=== PATIENT | female | born 1975 | race Caucasian/White ===

== ENCOUNTER 2022-02-17 15:01 | Outpatient (CLI) | payer OTHER, SELFPAY ==
--- NOTE | 2022-02-17 15:30 | CRLHL7_ITS ---
For Patients: As a result of the Century Cures Act, medical imaging exams and procedure reports are released immediately into your electronic medical record. You may view this report before your referring provider. If you have questions, please contact your health care provider. INDICATION: Headaches. TECHNIQUE: Multiplanar multisequence noncontrast MR images acquired through the brain. COMPARISON: None. FINDINGS: The ventricles and sulci are within normal limits for patient age. No mass effect or midline shift. No parenchymal signal abnormalities. No intracranial hemorrhage or pathologic extra-axial fluid collection. No diffusion restriction to suggest acute infarction. The major arterial flow voids of the skullbase are preserved. The globes are symmetric. Severe opacification of the left frontal sinus. Minimal left maxillary sinus mucosal thickening. The mastoid air cells are clear. IMPRESSION: 1. No intracranial abnormality on this noncontrast exam. 2. Severe opacification of the left frontal sinus. Dictated by Agustin Mckeon MD @ 02/17/2022 4:25:22 PM (Electronically Signed)
== END 2022-02-17 15:02 | disposition home or self-care (01) ==
LOC: MRI 15:02
PROVIDERS: PCP Physician Assistant Medical; Visit Provider Physician Assistant Medical
DX: R59.1 Generalized enlarged lymph nodes (principal)
CPT/HCPCS: 70551

== ENCOUNTER 2022-05-01 13:06 | Outpatient (CLI) | payer OTHER, SELFPAY ==
[2022-05-01 22:49] LABS: Cholesterol* 192 mg/dL (90-199)
[2022-05-01 22:50] LABS: Glucose* 54 mg/dL (60-115); HDL Cholesterol* 75 mg/dL (>=50); LDL Cholesterol Calculated 105 mg/dL (<100); Triglycerides* 62 mg/dL (40-149)
== END 2022-05-01 13:07 | disposition home or self-care (01) ==
PROVIDERS: PCP Physician Assistant Medical; Visit Provider Physician Assistant Medical
DX: Z00.00 Encounter for general adult medical examination without abnormal findings (principal); Z13.6 Encounter for screening for cardiovascular disorders; Z13.1 Encounter for screening for diabetes mellitus
CPT/HCPCS: 80061; 82947

== ENCOUNTER 2022-05-30 10:50 | Emergency (ER) | payer OTHER, SELFPAY ==
[2022-05-30 11:23] VITALS: BP 100/67; PULSE 87; RESP 16; TEMP 37; O2SAT 99
[2022-05-30 15:48] VITALS: BP 110/76; PULSE 73; RESP 17; TEMP 36.3; O2SAT 99
--- NOTE | 2022-05-30 15:49 | ED.NURSE ---
Patient rechecked in waiting room. No condition change, vital signs stable.
--- NOTE | 2022-05-30 17:31 | ED.ABDPAIN ---
HPI - Abdominal Pain General Date Seen: 05/30/22 Chief Complaint: Abdominal Pain Stated Complaint: Lower r abdominal pain Time Seen by Provider: 05/30/22 10:57 Source: patient and family Mode of arrival: ambulatory Limitations: no limitations History of Present Illness HPI narrative: patient is a 46-year-old female who presents here with right lower quadrant pain since yesterday, she describes it as a right upper right lower quadrant, with maybe a little radiation to her back and worse when she takes a deep breath in, any sort of movement worsens as, she is slightly nauseous, but has not vomited, she has no history of fevers chills or sweats, her urine has not been dark, she has no history of constipation. She denies previous abdominal surgeries. But has had a history of a previous uterine ablation. She took some ibuprofen 400 mg in the waiting room at home but really did notice a difference with this. She does have a history of chronic fibromyalgia, and use gabapentin periodically but has not done so for the last 6 months, she denies a history of alcohol drugs or smoking. History of black stools MD elicited complaint: abdominal pain Pertinent past history: none Related Data Home Medications Medication Instructions Recorded Confirmed Multiple vitamin PO 05/01/22 Previous Rx's Medication Instructions Recorded gabapentin 300 mg capsule 600 mg PO QHS #180 caps 05/01/22 Allergies Allergy/AdvReac Type Severity Reaction Status Date / Time No Known Drug Allergies Allergy Verified 05/01/22 12:53 [facility] Surgical History (Updated 05/01/22 @ 13:06 by Nancy Mackay PA-C) History of endometrial ablation Family History (Updated 02/08/22 @ 14:13 by Nancy Mackay PA-C) Paternal Grandmother Dementia Paternal Grandfather Dementia Sister Brain disorder, Onset Age: 27 Social History (Updated 05/01/22 @ 13:09 by Nancy Mackay PA-C) Narrative: . 4 sons; 1 step daughter Smoking Status: Never smoker Do you use any of these nicotine containing products: None Second hand tobacco smoke exposure: No How often do you have a drink containing alcohol: never How often do you have six or more drinks on one occasion: Never AUDIT-C Alcohol total score: 0 Non-prescribed substance use: denies use Little interest or pleasure in doing things: not at all Feeling down, depressed, or hopeless: not at all service: No Exam Narrative: Exam Narrative: Patient is peaking normally, problem with slurring words, oriented x3. Head eyes ears nose and throat exam show equal pupils, no scleral icterus, extraocular muscles are normal, no facial droop, speech is normal, trachea normal and midline. Thyroid normal midline palpable not enlarged. Chest shows symmetrical rise bilaterally, normal auscultation with no wheezes, no increased work of breathing, no overt bruising or lesions seen, no tenderness is noted on auscultation. Heart sounds normal with no S3-S4 no murmurs clicks or gallops. Abdomen shows no obvious masses or hepatosplenomegaly, no organomegaly, bowel sounds are normal in all quadrants. tenderness is noted in the right upper and lower quadrants, I would describe as mild to moderate. Upper and lower extremities show normal power, normal range of motion, pulses are normal, sensations normal, fine motor movements are normal, pelvis is stable to rocking. Cervical spine shows normal range of motion, and palpably not tender. Thoracic spine shows normal range of motion, and palpably not tender, lumbar spine shows no tenderness to palpation percussion and is otherwise normal range of motion. Skin shows no rashes, petechiae or eccymosis. Const: Vital Signs, click to edit/add: Vital Signs - 24 hr 05/30/22 11:23 05/30/22 15:48 05/30/22 20:07 Temperature 98.6 F 97.4 F L Pulse Rate [Pulse Oximeter] 87 73 70 Respiratory Rate 16 17 16 Blood Pressure Blood Pressure [Ri ght Upper Arm] 100/67 110/76 95/63 Pulse Oximetry 99 99 99 Oxygen Delivery Me thod Room Air Room Air Room Air 05/30/22 18:00 05/30/22 20:35 Temperature Pulse Rate [Pulse Oximeter] Respiratory Rate Blood Pressure 113/74 Blood Pressure [Ri ght Upper Arm] 101/70 Pulse Oximetry Oxygen Delivery Me thod Course Course Hospital Course: I spoke to patient and her significant other, at this point her labs all look reassuring, we will do a CT scan to further rule out acute abnormality, if this is negative then I think we can lower go home, she is improved with the Toradol, Zofran and the fluids. Reevaluation(s) Reevaluation #1: I reviewed with the patient that her CT scan did not show any acute abnormality, but did show evidence of a right-sided ovarian cyst. She tells me she has had this before in the past, and I do recommend she follows up with her primary care physician and considers further imaging done in 4-6 weeks. I would also recommend that she use ibuprofen Tylenol I did offer her stronger pain medicine that she may use such as narcotics but she declined this intervention. Worsening pain then I would recommend that she come back and be seen and she was comfortable with this plan. Time: 20:57 Vital Signs Vital signs: Initial Vital Signs Temperature 98.6 F 05/30/22 11:23 Temperature Source Temporal Artery Scan 05/30/22 11:23 Pulse Rate 87 05/30/22 11:23 Pulse Rhythm 05/30/22 11:23 Respiratory Rate 16 05/30/22 11:23 Blood Pressure 100/67 05/30/22 11:23 Blood Pressure Mean 78 05/30/22 11:23 Blood Pressure Position Sitting 05/30/22 11:23 Pulse Oximetry 99 05/30/22 11:23 Oxygen Delivery Method 05/30/22 11:23 Vital Signs Temperature 98.6 F 05/30/22 11:23 Pulse Rate 87 05/30/22 11:23 Respiratory Rate 16 05/30/22 11:23 Blood Pressure 100/67 05/30/22 11:23 Pulse Oximetry 99 05/30/22 11:23 Oxygen Delivery Method 05/30/22 11:23 Temperature 97.4 F L 05/30/22 15:48 Pulse Rate 70 05/30/22 20:07 Respiratory Rate 16 05/30/22 20:07 Blood Pressure 113/74 05/30/22 20:35 Pulse Oximetry 99 05/30/22 20:07 Oxygen Delivery Method 05/30/22 20:07 MDM - Abdominal Pain MDM Narrative Medical decision making narrative: During the evaluation of this patient I considered multiple differential diagnosis including life-threatening differentials which are appendicitis, aortic aneurysm, mesenteric ischemia, bowel perforation, ectopic , volvulus and bowel obstruction, other differential diagnosis include but are not limited to inflammatory bowel disease, cholecystitis, pancreatitis, hepatitis, gastritis, GERD, diverticulitis, peptic ulcer disease, pyelonephritis/UTI, renal colic/stone, pelvic inflammatory disease, cervicitis, endometritis, intrauterine , dysfunctional uterine bleeding, ovarian cyst/torsion, spontaneous as well as other etiologies Medical Records Attestation: I reviewed the patient's medical records. Lab Data Attestation: I reviewed the patient's lab results. Labs: Lab Results 05/30/22 05/30/22 05/30/22 Range/Units 18:00 18:00 18:00 WBC 7.00 (4.50-11.00) K/uL RBC 4.51 (4.00-5.20) m/uL Hgb 13.3 (12.0-16.0) gm/dL Hct 40.2 (33.0-51.0) % MCV 89 (80-100) fL MCH 30 (26-34) pg MCHC 33 (32-36) gm/dL RDW Coeff of José Miguel 12.8 (11.5-15.5) % Plt Count 258 (140-440) K/uL Neut % (Auto) 66.9 (42.0-72.0) % Lymph % (Auto) 25.3 (20-44) % [place] % (Auto) 7.1 (0.0-11.0) % Eos % (Auto) 0.3 (0.0-7.0) % Baso % (Auto) 0.3 (0.0-3.0) % Neut # (Auto) 4.68 (1.7-7.0) K/uL Lymph # (Auto) 1.77 (0.90-2.90) K/uL [place] # (Auto) 0.50 (0.00-0.90) K/UL Eos # (Auto) 0.02 (0.00-0.50) K/uL Baso # (Auto) 0.02 (0.00-0.30) K/uL Sodium 139 (135-149) mmol/L Potassium 3.8 (3.6-5.1) mmol/L Chloride 105 (96-114) mmol/L Carbon Dioxide 25 (20-32) mmol/L BUN 7 (5-24) mg/dL Creatinine 0.6 (0.5-1.5) mg/dL Estimated GFR 113 ml/min Glucose 93 (60-115) mg/dL Calcium 9.5 (8.4-10.6) mg/dL Total Bilirubin (0.1-1.5) mg/dL Direct Bilirubin (0.0-0.5) mg/dL AST (12-35) U/L ALT (4-35) U/L Alkaline Phosphatase (40-150) U/L C-Reactive Protein < 0.5 L (0.5-1.0) mg/dL Total Protein (6.0-8.3) g/dL Albumin (3.3-5.0) g/dL Lipase 92 (23-300) U/L Urine Color Urine Appearance Urine pH Ur Specific [place] Urine Protein Urine Glucose (UA) Urine Ketones Urine Blood Urine Nitrite Urine Bilirubin Urine Urobilinogen Ur Leukocyte Esterase Urine RBC Urine WBC Urine WBC Clumps Ur Squamous Epith Cells Gato Biurate Crystals Calcium Carbonate Cryst Calcium Phosphate Cryst Calcium Oxalate Crystal Cystine Crystals Uric Acid Crystals Triple Phos Crystals Sulfur Crystals Cholesterol Crystals Tyrosine Crystals Hippuric Acid Crystals Amorphous Sediment Other Sediment Urine Bacteria Fatty Casts Hyaline Casts Fine Granular Casts Coarse Granular Casts Waxy Casts RBC Casts WBC Casts Other Casts Urine Starch Urine Mucus Urine Trichomonas Urine Yeast Urine HCG, Qual (Negative) Urine Opiates Screen (Negative) Ur Oxycodone Screen (Negative) Urine Methadone Screen (Negative) Ur Propoxyphene Screen (Negative) Ur Barbiturates Screen (Negative) U Tricyclic Antidepress (Negative) Ur Phencyclidine Scrn (Negative) Ur Amphetamines Screen (Negative) U Methamphetamines Scrn (Negative) U Benzodiazepines Scrn (Negative) Urine Cocaine Screen (Negative) U Marijuana (THC) Screen (Negative) Ur Drug Screen Comment SARS-CoV-2 (PCR) Negative SARS-CoV-2 (Negative) Influenza Type A (PCR) Negative PCR FLU A (Negative) Influenza Type B (PCR) Negative PCR FLU B (Negative) RSV (PCR) Negative PCR RSV (Negative) 05/30/22 05/30/22 05/30/22 Range/Units 18:00 18:19 18:19 WBC (4.50-11.00) K/uL RBC (4.00-5.20) m/uL Hgb (12.0-16.0) gm/dL Hct (33.0-51.0) % MCV (80-100) fL MCH (26-34) pg MCHC (32-36) gm/dL RDW Coeff of José Miguel (11.5-15.5) % Plt Count (140-440) K/uL Neut % (Auto) (42.0-72.0) % Lymph % (Auto) (20-44) % [place] % (Auto) (0.0-11.0) % Eos % (Auto) (0.0-7.0) % Baso % (Auto) (0.0-3.0) % Neut # (Auto) (1.7-7.0) K/uL Lymph # (Auto) (0.90-2.90) K/uL [place] # (Auto) (0.00-0.90) K/UL Eos # (Auto) (0.00-0.50) K/uL Baso # (Auto) (0.00-0.30) K/uL Sodium (135-149) mmol/L Potassium (3.6-5.1) mmol/L Chloride (96-114) mmol/L Carbon Dioxide (20-32) mmol/L BUN (5-24) mg/dL Creatinine (0.5-1.5) mg/dL Estimated GFR ml/min Glucose (60-115) mg/dL Calcium (8.4-10.6) mg/dL Total Bilirubin 1.0 (0.1-1.5) mg/dL Direct Bilirubin 0.3 (0.0-0.5) mg/dL AST 24 (12-35) U/L ALT 18 (4-35) U/L Alkaline Phosphatase 51 (40-150) U/L C-Reactive Protein (0.5-1.0) mg/dL Total Protein 8.2 (6.0-8.3) g/dL Albumin 4.7 (3.3-5.0) g/dL Lipase (23-300) U/L Urine Color Cancelled Yellow Urine Appearance Cancelled Clear Urine pH Cancelled 7.5 Ur Specific [place] Cancelled 1.015 Urine Protein Cancelled Negative Urine Glucose (UA) Cancelled Negative Urine Ketones Cancelled 2+ A Urine Blood Cancelled Negative Urine Nitrite Cancelled Negative Urine Bilirubin Cancelled Negative Urine Urobilinogen Cancelled 1.0 Ur Leukocyte Esterase Cancelled Negative Urine RBC Cancelled 0-2 Urine WBC Cancelled 0-2 Urine WBC Clumps Cancelled Ur Squamous Epith Cells Cancelled None Gato Biurate Crystals Cancelled Calcium Carbonate Cryst Cancelled Calcium Phosphate Cryst Cancelled Calcium Oxalate Crystal Cancelled Cystine Crystals Cancelled Uric Acid Crystals Cancelled Triple Phos Crystals Cancelled Sulfur Crystals Cancelled Cholesterol Crystals Cancelled Tyrosine Crystals Cancelled Hippuric Acid Crystals Cancelled Amorphous Sediment Cancelled Other Sediment Cancelled Urine Bacteria Cancelled None Fatty Casts Cancelled Hyaline Casts Cancelled Fine Granular Casts Cancelled Coarse Granular Casts Cancelled Waxy Casts Cancelled RBC Casts Cancelled WBC Casts Cancelled Other Casts Cancelled Urine Starch Cancelled Urine Mucus Cancelled Urine Trichomonas Cancelled Urine Yeast Cancelled Urine HCG, Qual Negative (Negative) Urine Opiates Screen (Negative) Ur Oxycodone Screen (Negative) Urine Methadone Screen (Negative) Ur Propoxyphene Screen (Negative) Ur Barbiturates Screen (Negative) U Tricyclic Antidepress (Negative) Ur Phencyclidine Scrn (Negative) Ur Amphetamines Screen (Negative) U Methamphetamines Scrn (Negative) U Benzodiazepines Scrn (Negative) Urine Cocaine Screen (Negative) U Marijuana (THC) Screen (Negative) Ur Drug Screen Comment SARS-CoV-2 (PCR) (Negative) Influenza Type A (PCR) (Negative) Influenza Type B (PCR) (Negative) RSV (PCR) (Negative) 05/30/22 Range/Units 18:19 WBC (4.50-11.00) K/uL RBC (4.00-5.20) m/uL Hgb (12.0-16.0) gm/dL Hct (33.0-51.0) % MCV (80-100) fL MCH (26-34) pg MCHC (32-36) gm/dL RDW Coeff of José Miguel (11.5-15.5) % Plt Count (140-440) K/uL Neut % (Auto) (42.0-72.0) % Lymph % (Auto) (20-44) % [place] % (Auto) (0.0-11.0) % Eos % (Auto) (0.0-7.0) % Baso % (Auto) (0.0-3.0) % Neut # (Auto) (1.7-7.0) K/uL Lymph # (Auto) (0.90-2.90) K/uL [place] # (Auto) (0.00-0.90) K/UL Eos # (Auto) (0.00-0.50) K/uL Baso # (Auto) (0.00-0.30) K/uL Sodium (135-149) mmol/L Potassium (3.6-5.1) mmol/L Chloride (96-114) mmol/L Carbon Dioxide (20-32) mmol/L BUN (5-24) mg/dL Creatinine (0.5-1.5) mg/dL Estimated GFR ml/min Glucose (60-115) mg/dL Calcium (8.4-10.6) mg/dL Total Bilirubin (0.1-1.5) mg/dL Direct Bilirubin (0.0-0.5) mg/dL AST (12-35) U/L ALT (4-35) U/L Alkaline Phosphatase (40-150) U/L C-Reactive Protein (0.5-1.0) mg/dL Total Protein (6.0-8.3) g/dL Albumin (3.3-5.0) g/dL Lipase (23-300) U/L Urine Color Urine Appearance Urine pH Ur Specific [place] Urine Protein Urine Glucose (UA) Urine Ketones Urine Blood Urine Nitrite Urine Bilirubin Urine Urobilinogen Ur Leukocyte Esterase Urine RBC Urine WBC Urine WBC Clumps Ur Squamous Epith Cells [place] Biurate Crystals Calcium Carbonate Cryst Calcium Phosphate Cryst Calcium Oxalate Crystal Cystine Crystals Uric Acid Crystals Triple Phos Crystals Sulfur Crystals Cholesterol Crystals Tyrosine Crystals Hippuric Acid Crystals Amorphous Sediment Other Sediment Urine Bacteria Fatty Casts Hyaline Casts Fine Granular Casts Coarse Granular Casts Waxy Casts RBC Casts WBC Casts Other Casts Urine Starch Urine Mucus Urine Trichomonas Urine Yeast Urine HCG, Qual (Negative) Urine Opiates Screen Negative (Negative) Ur Oxycodone Screen Negative (Negative) Urine Methadone Screen Negative (Negative) Ur Propoxyphene Screen Negative (Negative) Ur Barbiturates Screen Negative (Negative) U Tricyclic Antidepress Negative (Negative) Ur Phencyclidine Scrn Negative (Negative) Ur Amphetamines Screen Negative (Negative) U Methamphetamines Scrn Negative (Negative) U Benzodiazepines Scrn Negative (Negative) Urine Cocaine Screen Negative (Negative) U Marijuana (THC) Screen Negative (Negative) Ur Drug Screen Comment See Note SARS-CoV-2 (PCR) (Negative) Influenza Type A (PCR) (Negative) Influenza Type B (PCR) (Negative) RSV (PCR) (Negative) Imaging Data CT scan - abdomen: Attestation: I have reviewed the pertinent imaging results. My impression: no acute findings Radiologist's impression: Patient: ELINOR GILES Facility:?[facility] Patient ID:?[id number] Site Patient ID:?[id number]. Site :?[id number] Study:?CT Abdomen/Pelvis W/IV ONLY-05/30/2022 7:57:20 PM Ordering Physician:Haylee Wills Final Report: INDICATION: Right-sided abdominal pain TECHNIQUE: Axial images were obtained from the diaphragm to the pubic symphysis. Reformats were obtained in the coronal and sagittal plane. IV Contrast: 52 cc Isovue 370 Oral Contrast: None COMPARISON: None. FINDINGS: Lower chest: No acute consolidation. Right breast implant. Liver: Unremarkable. Normal in size and attenuation. No masses. Gallbladder and bile ducts: Unremarkable. No stones or inflammation. No biliary dilatation. Spleen: Unremarkable. Normal in size without mass. Pancreas: Unremarkable. No mass or inflammation. Adrenal glands: Unremarkable. No nodules. Kidneys: Unremarkable. No masses, stones, or hydronephrosis. Vasculature: Unremarkable. GI tract: No dilated loops of large or small intestine. Unremarkable appendix. Pelvis: Tubal ligation clips within the anterior pelvis although these are not at the level of the fallopian tubes. Right ovarian cyst measuring 2.0 centimeters. Trace free fluid in the deep pelvis. Bones: Unremarkable for age. IMPRESSION: 1. No dilated loops of large or small intestine. Unremarkable appendix. 2. Right ovarian cyst measuring 2.0 centimeters with trace free fluid. Please note that all CT scans at this facility use dose modulation, iterative reconstruction, and/or weight-based dosing when appropriate to reduce radiation dose to as low as reasonably achievable. Dictated by Arsen Liriano MD @ 05/30/2022 8:09:31 PM (Electronic Signature) Discharge Plan Discharge Clinical Impression: Ovarian cyst, Abdominal pain Patient Disposition: Home w/ Parent or Adult Condition: Improved Instructions: Ovarian Cyst (ED), Abdominal Pain (ED) Additional Instructions: Home, rest, use of ibuprofen and Tylenol for your discomfort, if it comes back bad like it was before please return, I would recommend follow-up with her primary care physician within the next week, to discuss the ovarian cyst as you will need to follow-up ultrasound in 4-6 weeks for this. Prescriptions: No Action Multiple vitamin PO gabapentin 300 mg capsule 600 mg PO QHS Qty: 180 3RF Rx Instructions: Take 2 capsules at night for fibromyalgia pain Follow Up/Referrals: Nancy Mackay PA-C [Primary Care Provider] - Stand Alone Forms: [employer] Info Instructions
[2022-05-30] MEDS: 0.9 % SODIUM CHLORIDE 1000 ml 1,000 ML IV (17:58)
[2022-05-30] MEDS: ONDANSETRON 2 MG/ML inj 4 MG IVP (17:58)
[2022-05-30] MEDS: KETOROLAC 30 MG/ML inj IVP (17:58)
[2022-05-30 18:00] VITALS: BP 101/70
[2022-05-30 18:17] LABS: Basophils Absolute Auto 0.02 K/uL (0.00-0.30); Basophils Percent Auto 0.3 % (0.0-3.0); Eosinophils Absolute Auto 0.02 K/uL (0.00-0.50); Eosinophils Percent Auto 0.3 % (0.0-7.0); Hematocrit 40.2 % (33.0-51.0); Hemoglobin* 13.3 gm/dL (12.0-16.0); Immature Granulocytes Abs Auto 0.01 K/uL (0.00-0.30); Immature Granulocytes Pct Auto 0.1 %; Lymphocytes Absolute Auto 1.77 K/uL (0.90-2.90); Lymphocytes Percent Auto 25.3 % (20-44); Mean Corpuscular HGB Conc 33 gm/dL (32-36); Mean Corpuscular Hemoglobin 30 pg (26-34); Mean Corpuscular Volume 89 fL (80-100); Monocytes Percent Auto 7.1 % (0.0-11.0); Neutrophils Absolute Auto 4.68 K/uL (1.7-7.0); Neutrophils Percent Auto 66.9 % (42.0-72.0); Platelet Count* 258 K/uL (140-440); RDW Coefficient of Variation % 12.8 % (11.5-15.5); Red Blood Count 4.51 m/uL (4.00-5.20)
[2022-05-30 18:19] LABS: Slide Review Reflex No
[2022-05-30 18:26] LABS: Appearance Urine Clear (Clear); Bilirubin Urine Negative (Negative); Blood Urine Negative (Negative); Color Urine Yellow (Yellow); Glucose Urine Negative (Negative); Ketones Urine 2+ (Negative); Leukocyte Esterase Urine Negative (Negative); Nitrite Urine Negative (Negative); Protein Urine Negative (Negative); Specific Gravity Urine 1.015 (1.000-1.030); pH Urine 7.5 (5.0-8.5)
[2022-05-30 18:26] LABS: Chloride* 105 mmol/L (96-114)
[2022-05-30 18:27] LABS: Potassium* 3.8 mmol/L (3.6-5.1); Sodium* 139 mmol/L (135-149)
[2022-05-30 18:29] LABS: Creatinine* 0.6 mg/dL (0.5-1.5); Estimated Glomerular Filt Rate 113 ml/min; Lipase* 92 U/L (23-300)
[2022-05-30 18:30] LABS: Blood Urea Nitrogen* 7 mg/dL (5-24); Calcium* 9.5 mg/dL (8.4-10.6); Carbon Dioxide* 25 mmol/L (20-32); Glucose* 93 mg/dL (60-115)
[2022-05-30 18:31] LABS: Ur HCG Qualitative* Negative (Negative)
[2022-05-30 18:36] LABS: Amphetamine Screen Urine Negative (Negative); Barbiturate Screen Urine Negative (Negative); Benzodiazepines Screen Urine Negative (Negative); Cannabinoid Screen Urine Negative (Negative); Cocaine Screen Urine Negative (Negative); Methadone Screen Urine Negative (Negative); Methamphetamines Screen Urine Negative (Negative); Opiate Screen Urine Negative (Negative); Oxycodone Screen Urine Negative (Negative); Phencyclidine Screen Urine Negative (Negative); Tricyclic Antidepressant Urine Negative (Negative)
[2022-05-30 18:37] LABS: C Reactive Protein* < 0.5 mg/dL (0.5-1.0)
[2022-05-30 18:38] LABS: RBC Urine 0-2 (0-2); WBC Urine 0-2 (0-5)
[2022-05-30 18:50] LABS: PCR FLU A Negative PCR FLU A (Negative); PCR FLU B Negative PCR FLU B (Negative); PCR RSV Negative PCR RSV (Negative)
[2022-05-30 18:51] LABS: Albumin* 4.7 g/dL (3.3-5.0)
[2022-05-30 18:53] LABS: Bilirubin Direct* 0.3 mg/dL (0.0-0.5); Total Protein* 8.2 g/dL (6.0-8.3)
[2022-05-30 18:54] LABS: Alanine Aminotransferase* 18 U/L (4-35); Alkaline Phosphatase* 51 U/L (40-150); Aspartate Amino Transferase* 24 U/L (12-35)
[2022-05-30 19:19] LABS: SARS PCR* Negative SARS-CoV-2 (Negative)
--- NOTE | 2022-05-30 19:24 | CRLHL7_ITS ---
For Patients: As a result of the Century Cures Act, medical imaging exams and procedure reports are released immediately into your electronic medical record. You may view this report before your referring provider. If you have questions, please contact your health care provider. INDICATION: Right-sided abdominal pain TECHNIQUE: Axial images were obtained from the diaphragm to the pubic symphysis. Reformats were obtained in the coronal and sagittal plane. IV Contrast: 52 cc Isovue 370 Oral Contrast: None COMPARISON: None. FINDINGS: Lower chest: No acute consolidation. Right breast implant. Liver: Unremarkable. Normal in size and attenuation. No masses. Gallbladder and bile ducts: Unremarkable. No stones or inflammation. No biliary dilatation. Spleen: Unremarkable. Normal in size without mass. Pancreas: Unremarkable. No mass or inflammation. Adrenal glands: Unremarkable. No nodules. Kidneys: Unremarkable. No masses, stones, or hydronephrosis. Vasculature: Unremarkable. GI tract: No dilated loops of large or small intestine. Unremarkable appendix. Pelvis: Tubal ligation clips within the anterior pelvis although these are not at the level of the fallopian tubes. Right ovarian cyst measuring 2.0 centimeters. Trace free fluid in the deep pelvis. Bones: Unremarkable for age. IMPRESSION: 1. No dilated loops of large or small intestine. Unremarkable appendix. 2. Right ovarian cyst measuring 2.0 centimeters with trace free fluid. Please note that all CT scans at this facility use dose modulation, iterative reconstruction, and/or weight-based dosing when appropriate to reduce radiation dose to as low as reasonably achievable. Dictated by Arsen Liriano MD @ 05/30/2022 8:09:31 PM (Electronically Signed)
[2022-05-30 20:07] VITALS: BP 95/63; PULSE 70; RESP 16; O2SAT 99
[2022-05-30 20:35] VITALS: BP 113/74
== END 2022-05-30 20:37 | disposition home or self-care (01) ==
PROVIDERS: Emergency Medicine; Emergency Provider Family Medicine; PCP Physician Assistant Medical
DX: N83.201 Unspecified ovarian cyst, right side (principal)
CPT/HCPCS: 36415; 74177; 80048; 80076; 80306; 81001; 81025; 83690; 85025; 86140; 87502; 87634; 87635; 96374; 96375; 99284; J1885; J2405; J7030; Q9967

== ENCOUNTER 2022-08-22 15:15 | Outpatient (CLI) | payer OTHER, SELFPAY ==
--- NOTE | 2022-08-22 15:20 | CRLHL7_ITS ---
For Patients: As a result of the Cures Act, medical imaging exams and procedure reports are released immediately into your electronic medical record. You may view this report before your referring provider. If you have questions, please contact your health care provider. BILATERAL SCREENING MAMMOGRAM WITH COMPUTER-AIDED DETECTION AND TOMOSYNTHESIS TECHNIQUE: CC, MLO and Implant displaced views were obtained. These mammographic images have been obtained using full-field digital technique. These mammographic images were interpreted with the benefit of computer-aided detection. Breast Tomosynthesis was used in this interpretation. COMPARISON FILM: 03/01/19. FINDINGS: The breasts are extremely dense, which lowers the sensitivity of mammography IMPRESSION: There is no radiographic evidence for malignancy. ASSESSMENT: BI-RADS Category 2: Benign RECOMMENDATION: Routine screening mammogram in 1 year. A lay language report of this examination will be provided to the patient. Frederick López M.D. Diagnostic Radiologist [email or web address] Transcribed: 5:37 p.mFouzia santiago/Dictated by: Frederick López MD @ 08/24/2022 12:43:00 PM (Electronically Signed)
== END 2022-08-22 15:16 | disposition home or self-care (01) ==
LOC: MAMMO 15:16
PROVIDERS: PCP Physician Assistant Medical; Visit Provider Physician Assistant Medical
DX: Z12.31 Encounter for screening mammogram for malignant neoplasm of breast (principal); R92.2 Inconclusive mammogram
CPT/HCPCS: 77063; 77067

== ENCOUNTER 2023-06-21 08:57 | Outpatient (CLI) | payer OTHER, SELFPAY | END 2023-06-21 08:58 | disposition home or self-care (01) | PROVIDERS: PCP Physician Assistant Medical; Visit Provider Physician Assistant Medical | DX: Z00.00 Encounter for general adult medical examination without abnormal findings (principal); R21 Rash and other nonspecific skin eruption; D50.9 Iron deficiency anemia, unspecified; E55.9 Vitamin D deficiency, unspecified; R53.83 Other fatigue; M79.7 Fibromyalgia | CPT/HCPCS: 80053; 80061; 84443; 86039; 86140; 86200; 86431; 86812 ==

== ENCOUNTER 2023-06-29 09:04 | Outpatient (REF) | payer OTHER, SELFPAY | END 2023-06-29 09:05 | disposition home or self-care (01) | LOC: NFLDREF 09:04 | PROVIDERS: PCP Physician Assistant Medical; Referring Provider Physician Assistant Medical; Visit Provider Physician Assistant Medical | DX: R21 Rash and other nonspecific skin eruption (principal) | CPT/HCPCS: 85610; 85613; 85730 ==

== ENCOUNTER 2023-09-27 14:30 | Outpatient (CLI) | payer OTHER, SELFPAY ==
--- NOTE | 2023-09-27 14:40 | MM_ITS ---
Patient: ELINOR GILES Facility:?[facility] Patient ID:?[id number] Site Patient ID:?[id number]. Site :?[id number] Study:?XRay-Breast Bilateral 3D W/CAD-09/27/2023 3:34:27 PM Ordering Physician:Sukhi Final Report: BILATERAL SCREENING MAMMOGRAM WITH COMPUTER-AIDED DETECTION AND TOMOSYNTHESIS TECHNIQUE: CC, MLO and Implant displaced views were obtained. These mammographic images have been obtained using full-field digital technique. These mammographic images were interpreted with the benefit of computer-aided detection. Breast Tomosynthesis was used in this interpretation. COMPARISON FILM: 08/22/22. FINDINGS: The breasts are extremely dense, which lowers the sensitivity of mammography. IMPRESSION: There is no radiographic evidence for malignancy. ASSESSMENT: BI-RADS Category 2: Benign RECOMMENDATION: Routine screening mammogram in 1 year. A lay language report of this examination will be provided to the patient. Frederick López M.D. Diagnostic Radiologist [email or web address] DSM/sp R& Transcribed: 6:58 p.m. SP/Dictated by: Frederick López MD @ 10/01/2023 9:01:00 AM Signed by:?Frederick López MD @10/01/2023 8:47:34 PM (Electronic Signature)
== END 2023-09-27 14:31 | disposition home or self-care (01) ==
LOC: MAMMO 14:30
PROVIDERS: PCP Physician Assistant Medical; Visit Provider Physician Assistant Medical
DX: Z12.31 Encounter for screening mammogram for malignant neoplasm of breast (principal); R92.2 Inconclusive mammogram
CPT/HCPCS: 77063; 77067

== ENCOUNTER 2024-06-19 16:08 | Outpatient (CLI) | payer OTHER, SELFPAY | END 2024-06-19 16:09 | disposition home or self-care (01) | PROVIDERS: PCP Physician Assistant Medical; Visit Provider Physician Assistant Medical | DX: E55.9 Vitamin D deficiency, unspecified (principal); N95.1 Menopausal and female climacteric states; R21 Rash and other nonspecific skin eruption; M79.7 Fibromyalgia; R00.2 Palpitations | CPT/HCPCS: 82306; 82670; 83001; 83735; 84403; 84443; 86140; 86231; 86258; 86364; 86376 ==

== ENCOUNTER 2024-10-15 14:36 | Outpatient (CLI) | payer OTHER, SELFPAY ==
--- NOTE | 2024-10-15 14:40 | CRLHL7_ITS ---
For Patients: As a result of the Century Cures Act, medical imaging exams and procedure reports are released immediately into your electronic medical record. You may view this report before your referring provider. If you have questions, please contact your health care provider. INDICATION: BILATERAL SCREENING MAMMOGRAM, ASYMPOTMATIC 49 Y/O FEMALE COMPARISON: 09/27/2023, 08/22/2022 TECHNIQUE: Digital mammogram in CC and MLO projections including computer-aided detection (CAD) and tomosynthesis. BREAST COMPOSITION: The breasts are extremely dense, which lowers the sensitivity of mammography. FINDINGS: No suspicious findings. ASSESSMENT: BI-RADS 2 Benign RECOMMENDATION: Annual screening mammogram. A lay language report of this examination will be provided to the patient. Dictated by: Frederick López MD @ 10/21/2024 12:32:16 (Electronically Signed)
== END 2024-10-15 14:37 | disposition home or self-care (01) ==
LOC: MAMMO 14:37
PROVIDERS: PCP Physician Assistant Medical; Visit Provider Physician Assistant Medical
DX: Z12.31 Encounter for screening mammogram for malignant neoplasm of breast (principal); R92.343 Mammographic extreme density, bilateral breasts; Z98.82 Breast implant status
CPT/HCPCS: 77063; 77067